=== PATIENT | male | born 1995 ===

== ENCOUNTER 2017-11-09 17:30 | Emergency (ER) | payer OTHER ==
--- NOTE | 2017-11-09 18:30 | ED PDOC ---
HPI: General Adult Time Seen by Provider: 11/09/17 18:07 Chief Complaint (Nursing): Groin Pain History Per: Patient Additional Complaint(s): Pt. states yesterday he was performing an exercise called [employer]. As he was performing the exercise he developed atraumatic L testicular pain. Reports pain has been constant since then. Reports feeling a swelling to the area. Denies blunt trauma, dysuria, hematuria, penile discharge, penile pain, hx of STD. Past Medical History Reviewed: Historical Data, Nursing Documentation, Vital Signs Vital Signs: Last Vital Signs Temp 98.0 F 11/09/17 17:42 Pulse 63 11/09/17 17:42 Resp 16 11/09/17 17:42 BP 130/50 L 11/09/17 17:42 Pulse Ox 99 11/09/17 20:04 - Family History Family History: States: No Known Family Hx - Home Medications Home Medications: Ambulatory Orders Medication Instructions Recorded Naproxen [Naprosyn] 500 mg PO BID PRN #10 tab 11/09/17 - Allergies Allergies/Adverse Reactions: Allergies Allergy/AdvReac Type Severity Reaction Status Date / Time No Known Allergies Allergy Verified 11/09/17 17:42 Review of Systems ROS Statement: Except As Marked, All Systems Reviewed And Found Negative Genitourinary Male: Positive for: Scrotal Pain Physical Exam - Physical Exam Appears: Positive for: Well, Non-toxic, No Acute Distress Skin: Positive for: Normal Color, Warm. Negative for: Rash Gastrointestinal/Abdominal: Positive for: Normal Exam, Soft. Negative for: Tenderness Male Genital Exam: Positive for: normal genitalia, no hernia, testicular tenderness (L). Negative for: lesions, scrotum tenderness (R), scrotum tenderness (L), testicular tenderness (R), urethral discharge Back: Positive for: Normal Inspection. Negative for: L CVA Tenderness, R CVA Tenderness - ECG O2 Sat by Pulse Oximetry: 99 - Progress ED Course And Treament: Testicular US, UA, GC/chlamydia cultures ordered. 1940 Testicular US:Normal scrotal ultrasound. Disposition - Clinical Impression Clinical Impression: Testicular pain - Patient ED Disposition Is Patient to be Admitted: No - Disposition Referrals: Constantin Strong Jr., MD [Staff Provider] - Disposition: Routine/Home Disposition Time: 20:01 Condition: STABLE Additional Instructions: Follow up with Dr. Strong for further evaluation. Prescriptions: Naproxen [Naprosyn] 500 mg PO BID PRN #10 tab PRN Reason: Pain Instructions: Testicle Pain (ED) Forms: [facility] (N[place]ien) Print Language: [email or web address]
[2017-11-09 19:30] LABS: SQUAMOUS EPITHIAL < 1 /hpf (0-5); URINE BACTERIA RARE (<OCC); URINE BILIRUBIN NEGATIVE (NEGATIVE); URINE BLOOD NEGATIVE (NEGATIVE); URINE CLARITY SLIGHTY-CLOUDY (Clear); URINE COLOR YELLOW (YELLOW); URINE GLUCOSE (UA) NEG (Normal); URINE LEUKOCYTE ESTERASE TRACE Leu/uL (Negative); URINE NITRATE NEGATIVE (NEGATIVE); URINE PROTEIN NEGATIVE (NEGATIVE)
[2017-11-09 21:35] VITALS: BP 122/69; PULSE 76; RESP 17; TEMP 98.2; O2SAT 100
--- NOTE | 2017-11-10 08:13 | US ---
HISTORY: L testicular pain TECHNIQUE: Realtime sonography through the scrotum with color and doppler flow. COMPARISON: None Available. FINDINGS: RIGHT TESTICLE: Measures 5.9 x 3.3 x 2.9 cm. Normal echotexture and flow. RIGHT EPIDIDYMIS: Epididymal head measures 1.4 cm. Grossly unremarkable appearance with normal flow. LEFT TESTICLE: Measures 5.4 x 3.6 x 2.5 cm. Normal echotexture and flow. LEFT EPIDIDYMIS: Epididymal head measures 0.7 cm. Grossly unremarkable appearance with normal flow. HYDROCELE: None. VARICOCELE: None. OTHER FINDINGS: None. IMPRESSION: No evidence of testicular torsion.
== END 2017-11-09 20:10 | disposition home or self-care (01) ==
LOC: H.ER 17:30
DX: A74.9 Chlamydial infection, unspecified (principal)